=== PATIENT | female | born 1995 | race Caucasian/White ===

== ENCOUNTER 2019-01-25 13:44 | Day surgery (SDC) | payer OTHER ==
[~2019-01-25 13:44] MED LIST: Citric Acid/Sodium Citrate Solution 30 ML Cup PO ONE; Lactated Ringers 1,000 ML IV SCH; Oxytocin/Normal Saline 30 UNIT/500 ML BAG IV SCH; Sodium Chloride 0.9% 10 ML Syringe FLUSH PRN; ceFAZolin 2 GM in Premix Bag 1 BAG IV ONE
[2019-01-25] MEDS ORDERED: Ondansetron 4 MG/2 ML SDV IV ONE (13:45)
[2019-01-25] MEDS ORDERED: Midazolam 1 MG/ML 2 ML SDV IV ONE (13:45)
[2019-01-25] MEDS ORDERED: Propofol 200 MG/20 ML SDV IV ONE (13:45)
[2019-01-25] MEDS ORDERED: Ketorolac 30 MG/ML SDV IVPUSH ONE (13:45)
[2019-01-25] MEDS ORDERED: Lactated Ringers 1,000 ML IV ONE (13:45)
[2019-01-25] MEDS ORDERED: fentaNYL 250 MCG/5 ML SDV IV ONE (13:45)
[2019-01-25] MEDS ORDERED: Lidocaine 2% 20 ML MDV INJECT ONE (13:45)
[2019-01-25] MEDS ORDERED: Dexamethasone 4 MG/ML SDV IV ONE (13:45)
[2019-01-25] MEDS ORDERED: Ferric Subsulfate Topical Soln 8 GM (8 ML) Bottle ONE (15:52)
[2019-01-25] MEDS ORDERED: Silver Nitrate Applicator Each ONE (15:52)
[2019-01-25] MEDS ORDERED: Oxytocin/Normal Saline 30 UNIT/500 ML BAG ONE (16:01)
[2019-01-25 19:23] VITALS: BP 113/73; PULSE 60
--- NOTE | 2019-01-26 04:22 | OR ---
DATE: 01/25/2019 PROCEDURE PERFORMED: Suction dilatation and curettage. INDICATION FOR PROCEDURE: Retained products of conception with spontaneous at an estimated 10 weeks 6 days' gestation based on ultrasound. FIRST AND SECOND ASSISTANTS: REYNA RussellIII and REYNA Grady III. ANESTHESIA: General. CONSENT: Discussed with the patient and her the indications, risks, benefits, and alternatives of suction dilatation and curettage for evacuation of retained products of conception after miscarriage as compared to use of other abortifacient agents such as Cytotec for hopeful resolution of miscarriage. Discussed risk of bleeding, infection, injury to the uterus including scarring of the uterus, making future fertility an issue, also potential for uterine perforation requiring further surgery, potential injury to the bowel, bladder, uterus. The patient had the opportunity to have her questions answered and agreed to proceed and signed consent forms are in the chart. PROCEDURE IN DETAIL: The patient was brought to the operating room and general anesthesia obtained. She was placed in the dorsal lithotomy position and standard vaginal prep carried out. The patient had emptied her bladder just prior to the procedure, so straight catheterization was not necessary. Weighted speculum and right angle retractor used to get clear visualization of the cervix, which was then grasped with single-tooth tenaculum to hold it steady. Uterine sound was then placed and uterus sounded to 10.5 cm. Hegar dilators were then used in succession up to the size 20 with good result. Initial attempts at passing the size 10 mm curved suction catheter were performed; however, I was unable to get it sufficiently into the uterus for good result; therefore, I switched to an 8 mm straight suction catheter, at which time several passes were made into the uterus using a circular motion to remove the retained products of conception. Between checks, there was brisk bleeding coming from the cervical os. A final passage through the uterus was with a sharp curette and that was performed in all 4 quadrants until the uterine cry was appreciated. One final pass of the suction catheter confirmed empty uterus and bleeding had slowed significantly at that time. The single-tooth tenaculum was then removed and pressure was held on the tenaculum sites until hemostasis achieved. The patient tolerated the procedure well. COMPLICATIONS: None. ESTIMATED BLOOD LOSS: 650 mL. FLUIDS: IV crystalloids and Pitocin currently running. DISPOSITION: The patient to go to the PACU and she will be able to be discharged home after the anesthesia effects have worn off and confirmation that there are no delayed bleeding complications. FINDINGS: Retained products of conception were collected and will be sent to pathology for confirmatory analysis. No chromosomal analysis will be performed at this time. The patient has requested that the products be returned to her for burial if her lay out former is willing to perform a blessing. [facility] /[id number]
== END 2019-01-25 19:00 | disposition home or self-care (01) ==
LOC: DL.SDS 13:44
PROVIDERS: ATTEND Family Medicine
DX: O03.4 Incomplete spontaneous abortion without complication (principal); Z88.2 Allergy status to sulfonamides; Z88.0 Allergy status to penicillin; Z79.899 Other long term (current) drug therapy
CPT/HCPCS: 36415; 59812; 85025; 86850; 86900; 86901; J0690; J1100; J1885; J2001; J2250; J2405; J2590; J2704; J3010; J7120

== ENCOUNTER 2019-02-07 06:38 | Emergency (ER) | payer OTHER | END 2019-02-07 07:23 | disposition left against medical advice (07) | LOC: DL.ED 06:38 | DX: Z53.21 Procedure and treatment not carried out due to patient leaving prior to being seen by health care provider (principal) ==